=== PATIENT | male | born 1955 | race African-American/Black ===

== ENCOUNTER → 2019-11-20 | Outpatient (CLI) | payer OTHER ==
[~2019-11-20] MED LIST: DIOVAN80 MG PO; GLUCOVANCE; GLYBURIDE5 MG PO; INVOKANA PO; JANUMET 50-5001 EACH PO; LISINOPRIL10 MG PO; METFORMIN HCL1000 MG PO; MYRBETRIQ25 MG PO; RAPAFLO8 MG PO
== END | disposition home or self-care (01) ==
LOC: EDBD → RAD 11:22 → OR 12:27 → EDSTATUS 16:00
PROVIDERS: ATTEND Internal Medicine Gastroenterology
DX: Z09 Encounter for follow-up examination after completed treatment for conditions other than malignant neoplasm (principal); Z01.810 Encounter for preprocedural cardiovascular examination; Z53.29 Procedure and treatment not carried out because of patient's decision for other reasons
CPT/HCPCS: 36415; 82948; 93005